=== PATIENT | male | born 1950 | race Caucasian/White ===

== ENCOUNTER → 2016-05-10 | Outpatient (CLI) | payer OTHER | LOC: FIMAGING 10:04 | PROVIDERS: ATTEND Family Medicine Sports Medicine | DX: M54.5 Low back pain (principal); W11.XXXA Fall on and from ladder, initial encounter; R93.8 Abnormal findings on diagnostic imaging of other specified body structures ==

== ENCOUNTER 2016-06-04 08:12 | Outpatient (CLI) | payer OTHER ==
[2016-06-04] MEDS ORDERED: GADOBUTROL 10 ML VIAL IVP ONE (08:57)
[2016-06-04] MEDS ORDERED: NS 1,000 ML IV SCH (09:15)
[2016-06-04] MEDS ORDERED: fentaNYL 100 MCG/2 ML INJ ONE (09:23)
[2016-06-04] MEDS ORDERED: MIDAZOLAM 2 MG/2 ML VIAL ONE (09:24)
== END 2016-06-04 11:40 | disposition home or self-care (01) ==
LOC: FIMAGING 08:12
PROVIDERS: ATTEND Family Medicine Sports Medicine
DX: R93.5 Abnormal findings on diagnostic imaging of other abdominal regions, including retroperitoneum (principal); K40.90 Unilateral inguinal hernia, without obstruction or gangrene, not specified as recurrent; M76.891 Other specified enthesopathies of right lower limb, excluding foot
CPT/HCPCS: A9585; J2250; J3010

== ENCOUNTER 2016-06-05 10:59 | Emergency (ER) | payer OTHER ==
[2016-06-05 11:16] VITALS: BP 126/84; PULSE 66; RESP 18; TEMP 98.2; O2SAT 94
[2016-06-05] MEDS ORDERED: CARBAMIDE PEROXIDE 15 ML BOTTLE EACHEAR ONE (11:33)
--- NOTE | 2016-06-07 08:28 | EDPHY ---
H & P Time Seen by Provider: 06/05/16 11:17 HPI/ROS: This patient presents with cerumen impaction. He reports diminished hearing over the past 2 weeks characteristic of previous episodes of cerumen impaction. He explains that he periodically has to have his ears flushed for this condition. He denies any other associated symptoms. ROS: No ear pain. No nasal congestion/URI symptoms. No drainage from the ears. 5 point ROS is otherwise negative. Social History: Patient works in [employer] Smoking Status: Never smoked Physical Exam: Physical Exam Vital signs are normal. General: No acute distress HEENT: Ears: Right ear: [place] appears normal external canal exam reveals cerumen impaction left ear: [place] normal external canal cerumen impaction. Lungs: No respiratory distress Skin: No rash or pallor. Neuro: Alert Constitutional: Initial Vital Signs Temperature (C) 36.8 C 06/05/16 11:06 Heart Rate 66 06/05/16 11:06 Respiratory Rate 18 06/05/16 11:06 Blood Pressure 126/84 H 06/05/16 11:06 O2 Sat (%) 94 06/05/16 11:06 O2 Delivery Mode Room Air Allergies/Adverse Reactions: No Known Allergies Allergy (Verified 06/05/16 11:12) Home Medications: Medication Instructions Recorded Omeprazole PRN 05/28/16 Atorvastatin Calcium 06/05/16 Medical Decision Making ED Course/Re-evaluation: Debrox medication instilled to bilateral ears followed by irrigation by our tech with removal of cerumen. Patient tolerated this well. PQRS: NA - Data Points Medications Given: Discontinued Medications Carbamide Peroxide (Debrox) 5 drop EACHEAR EDNOW ONE Stop: 06/05/16 11:34 Last Admin: 06/05/16 11:40 Dose: 5 drops Departure - Departure Disposition: Home, Routine, Self-Care Clinical Impression: Impacted cerumen of both ears Condition: Good Instructions: Cerumen Impaction (ED) Additional Instructions: Diagnosis: Cerumen impaction-resolved Plan: Follow up with your primary care physician if he developed any recurrent symptoms Return if he developed ear pain or other concerns Referrals: TAMMY GONZALEZ [Primary Care Provider] - As per Instructions
== END 2016-06-05 12:29 | disposition home or self-care (01) ==
LOC: CED 10:59
PROC: 3E1B78Z Irrigation of Ear using Irrigating Substance, Via Natural or Artificial Opening (ICD-10-PCS; principal; 2016-06-05)
DX: H61.23 Impacted cerumen, bilateral (principal)
CPT/HCPCS: G0463-PO